=== PATIENT | male | born 1990 | race Caucasian/White ===

== ENCOUNTER 2018-11-09 02:33 | Emergency (ER) | payer OTHER ==
--- NOTE | 2018-11-09 02:47 | PDOC ---
History of Present Illness - General Stated Complaint: CHEST PAIN Time Seen by Provider: 11/09/18 02:47 History Source: Patient Exam Limitations: No Limitations - History of Present Illness Initial Comments: 11/09/18 03:22 Donald Ayers is a 27y previously healthy M presenting with chest pain. At midnight, ate gyro and started having bilateral chest pain, associated nausea, no vomiting. Symptoms resolved when he arrived in ED. No recent travel. Completed antibiotics for gum infection 2 weeks ago. Denies fever, SOB, AB pain , urinary/bowel changes, edema. Past History - Past Medical History Allergies/Adverse Reactions: Allergies Allergy/AdvReac Type Severity Reaction Status Date / Time No Known Allergies Allergy Verified 11/09/18 03:49 Home Medications: Ambulatory Orders NK [No Known Home Medication] 11/09/18 Review of Systems - Review of Systems Constitutional: No: Chills, Fever HEENTM: No: Eye Pain, Nose Pain, Throat Pain, Mouth Pain Respiratory: No: Cough, Shortness of Breath Cardiac (ROS): Yes: Chest Pain (bilateral). No: Palpitations, Syncope ABD/GI: No: Abdominal Distended, Constipated, Diarrhea, Nausea, Vomiting : No: Burning, Dysuria, Discharge, Flank Pain, Hematuria, Incontinence Musculoskeletal: No: Back Pain, Joint Pain, Muscle Pain, Muscle Weakness Integumentary: No: Bruising, Flushing, Lesions Neurological: No: Headache, Numbness, Seizure, Tingling Psychiatric: No: Anxiety, Depression Endocrine: No: Excessive Sweating, Flushing, Intolerance to Cold, Intolerance to Heat Hematologic/Lymphatic: No: Anemia, Blood Clots, Easy Bleeding *Physical Exam - Physical Exam General Appearance: Yes: Nourished, Appropriately Dressed. No: Apparent Distress HEENT: positive: EOMI, ORALIA, Normal Voice, Hearing Grossly Normal. negative: Scleral Icterus (R), Scleral Icterus (L) Respiratory/Chest: positive: Lungs Clear, Normal Breath Sounds. negative: Chest Tender, Respiratory Distress, Crackles, Rales, Rhonchi, Stridor, Wheezing Cardiovascular: positive: Regular Rhythm, Regular Rate, S1, S2. negative: Edema , Murmur Gastrointestinal/Abdominal: positive: Normal Bowel Sounds, Flat, Soft. negative : Tender, Organomegaly, Distended, Guarding, Rebound Extremity: positive: Normal Capillary Refill Integumentary: positive: Normal Color Neurologic: positive: Fully Oriented, Alert, Normal Mood/Affect, Normal Response , Responsive. negative: Sensory Deficit, Confused, Disoriented ED Treatment Course - LABORATORY CBC & Chemistry Diagram: 11/09/18 03:45 11/09/18 03:45 Medical Decision Making - Medical Decision Making 11/09/18 03:10 CXR normal EKG showed normal sinus rhythm Repeat HR 104 after XR, ordered CBC CMP trop d-dimer 1L NS Donald Ayers is a 27y previously healthy M presenting with chest pain. Likely MSK. Low risk ACS without any cardiac risk factors, EKG normal, trop negative. CXR was normal. Not PE d/t absence of leg swelling, hemoptysis, recent surgery/trauma, prior DVT, normal d-dimer. D/c home *DC/Admit/Observation/Transfer Diagnosis at time of Disposition: Chest pain Qualifiers: Chest pain type: unspecified Qualified Code(s): R07.9 - Chest pain, unspecified - Discharge Dispostion Disposition: HOME Condition at time of disposition: Good Decision to Admit order: No - Referrals - Patient Instructions Printed Discharge Instructions: DI for Chest Pain Additional Instructions: You were seen for chest pain. Your labs and imaging did not show anything concerning. Come back to the ED if you have worsening chest pain, vomiting, or cannot breathe. - Post Discharge Activity
[2018-11-09 03:16] VITALS: TEMP 97.7; BMI 60.2
--- NOTE | 2018-11-09 03:19 | PDOC ---
Attending Attestation - Resident Resident Name: Marcin Carvajal - ED Attending Attestation I have performed the following: I have examined & evaluated the patient, The case was reviewed & discussed with the resident, I agree w/resident's findings & plan - HPI HPI: 11/09/18 03:50 Pt comes with chest pain that was ongoing since 12:30PM He states that he ate pizza and a calzone and some spinach and a gyro today with coke and 2 coffees. He had some water to drink also. Pt is tachycardic. He took tylenol at home for the muscular CP, but no major relief. He is feeling better. He states that he feels that this could be anxiety. Family is at bedside, and no PMHx in the family. - Physicial Exam PE: 11/09/18 03:51 Agree with resident exam. Pt has a normal exam. - Medical Decision Making 11/09/18 03:52 Basic lab check and pt will be hydrated with 1L NSS. 11/09/18 04:12 CXR is normal 11/09/18 04:12 EKG normal; labs normal; vitals normal; only pt is slightly tachycardic. We will hydrate with IV NSS 11/09/18 04:27 CBC is normal; hb/hct may reflext that pt is dehydrated. Pt has a normal D-dimer. Chem pending 11/09/18 04:37 chem is normal card enzymes pending 11/09/18 04:40 trop negative; pt hydrated. Pt will follow with PMD/clinic as needed. He was reassured that his complete workup is normal. Heart Score/ECG Review - ECG Intrepretation Rhythm: Regular Rhythm - [place]: Normal - P and MT Delta Wave(s) Present: No WPW: No - QRS Poor R Wave Progression: No Q Wave Present: No - ST and T Early Repolarization: No Non Specific ST-T Wave changes: No Flattened T Waves: No Prolonged Q-T Interval: No - ECG Impressions Normal ECG: Yes Non-specific ST Elevation: No Ischemic Changes: No Bradycardia: No Torsades dirk Pointes: No WPW: No
[2018-11-09] MEDS ORDERED: SODIUM CHLORIDE 0.9% 500 ML INFUS.BAG IV ONE ×2 (03:38→03:49)
[2018-11-09 04:10] LABS: BASO % 0.4 % (0-2.0); EOS % 1.3 % (0-4.5); HEMATOCRIT 45.6 % (35.4-49); HEMOGLOBIN 15.6 GM/dL (11.7-16.9); LYMPH % 35.1 % (8-40); MCH 29.5 pg (25.7-33.7); MCHC 34.2 g/dl (32.0-35.9); MEAN CELL VOLUME 86.2 fl (80-96); MEAN PLT VOLUME 9.4 fl (7.5-11.1); MONO % 7.6 % (3.8-10.2); NEUT % 55.6 % (42.8-82.8); PLATELET COUNT 171 K/MM3 (134-434); RBC 5.28 M/mm3 (4.00-5.60); RDW 12.6 % (11.9-15.9); WHITE BLOOD COUNT 7.1 K/mm3 (4.0-10.0)
[2018-11-09 04:35] LABS: ALBUMIN 4.1 g/dl (3.4-5.0); BLOOD UREA NITROGEN 18.2 mg/dL (7-18); CALCIUM 8.8 mg/dL (8.5-10.1); CREATININE 1.1 mg/dL (0.55-1.3); POTASSIUM 3.7 mmol/L (3.5-5.1)
[2018-11-09 04:37] VITALS: BP 115/76; PULSE 85
[2018-11-09 04:43] LABS: URINE APPEARANCE CLEAR; URINE BILIRUBIN NEGATIVE (NEGATIVE); URINE COLOR YELLOW; URINE GLUCOSE (UA) NEGATIVE (NEGATIVE); URINE KETONE NEGATIVE (NEGATIVE); URINE LEUK ESTERASE NEGATIVE (NEGATIVE); URINE NITRITE NEGATIVE (NEGATIVE); URINE PROTEIN NEGATIVE (NEGATIVE); URINE UROBILINOGEN 0.2 mg/dL (0.2-1.0)
--- NOTE | 2018-11-10 11:37 | EKG ---
Test Reason : Blood Pressure : / mmHG Vent. Rate : 097 BPM Atrial Rate : 097 BPM P-R Int : 130 ms QRS Dur : 090 ms QT Int : 342 ms P-R-T Axes : 073 073 059 degrees QTc Int : 434 ms NORMAL SINUS RHYTHM NORMAL ECG NO PREVIOUS ECGS AVAILABLE Confirmed by LALITA SNOWDEN, JUAN ([id number]) on 11/10/2018 11:36:56 AM Referred By: Confirmed By:JUAN CELIS MD
== END 2018-11-09 04:45 | disposition home or self-care (01) ==
LOC: JER 02:33
PROC: 3E0337Z Introduction of Electrolytic and Water Balance Substance into Peripheral Vein, Percutaneous Approach (ICD-10-PCS; principal; 2018-11-09)
DX: R07.9 Chest pain, unspecified (principal)
CPT/HCPCS: 36415; 71046-TC-FY; 80053; 81003; 82550; 82553; 84484; 85025; 85379; 93005; 93010; 96360; 99282-25